=== PATIENT | male | born 1950 | race Caucasian/White ===

== ENCOUNTER 2020-12-17 09:36 | Inpatient (IN) | payer OTHER ==
[~2020-12-17] VITALS: Ht 175.3 cm; Wt 82.2 kg
[2020-12-17 10:20] LABS: BASOPHIL 0.3 % (0-2); EOSINOPHIL 0 % (0-7); HCT 17.3 % (42.0-52.0); LYMPHOCYTE 14.9 % (15-48); MCH 31.4 pg (25.0-31.0); MCHC 33.5 g/dL (32.0-36.0); MCV 93.5 fL (78.0-100.0); MONOCYTE 9.6 % (0-12); MPV 9.5 fL (6.0-9.5); NEUTROPHIL 74.6 % (41-80); NRBC 0.1; PLT 478 K/uL (150-400); RBC 1.85 M/uL (4.70-6.00); WBC 13.5 K/uL (4.0-10.5)
[2020-12-17 10:25] LABS: INR 1.38 (0.9-1.2); PROTHROMBIN TIME 16.3 SECONDS (11.8-13.4); PTT 33.2 SECONDS (24.4-34.7)
[2020-12-17 10:27] LABS: HGB 5.8 g/dl (13.2-18.0)
[2020-12-17 10:35] LABS: ALBUMIN 2.4 g/dL (3.4-5.0); BILIRUBIN - TOTAL 0.3 mg/dL (0.2-1.0); BUN/CREAT RATIO (CALC) 18.5 RATIO; CREATININE 0.81 mg/dL (0.67-1.17); GLOBULIN (CALCULATION) 2.2 g/dL; POTASSIUM 3.5 mmol/L (3.5-5.1); TOTAL PROTEIN 4.6 g/dL (6.4-8.2)
[2020-12-17 12:27] LABS: BILIRUBIN NEGATIVE (NEGATIVE); BLOOD NEGATIVE Ery/uL (NEGATIVE); CLARITY CLEAR (CLEAR); COLOR YELLOW (YELLOW); GLUCOSE (U) NORMAL (NORMAL); LEUKOCYTES NEGATIVE Leu/uL (NEGATIVE); NITRITE NEGATIVE (NEGATIVE); PROTEIN NEGATIVE (NEGATIVE)
[2020-12-17] MEDS ORDERED: PRAVACHOL20 MG PO (15:23)
[2020-12-17] MEDS ORDERED: ACCUPRIL40 MG PO (15:23)
[2020-12-17] MEDS ORDERED: ATENOLOL-CHLOR1 EAC1 PO (15:24)
[2020-12-17 21:11] LABS: HCT 22.6 % (42.0-52.0); HGB 7.7 g/dL (13.2-18.0)
[2020-12-18 06:54] LABS: BASOPHIL 0.7 % (0-2); EOSINOPHIL 1.1 % (0-7); HCT 20.7 % (42.0-52.0); HGB 7.1 g/dl (13.2-18.0); LYMPHOCYTE 30.1 % (15-48); MCHC 34.3 g/dL (32.0-36.0); MCV 90.4 fL (78.0-100.0); MONOCYTE 12.1 % (0-12); MPV 9.3 fL (6.0-9.5); NEUTROPHIL 55.6 % (41-80); NRBC 0; PLT 384 K/uL (150-400); RBC 2.29 M/uL (4.70-6.00); RDW 14.8 % (11.5-14.0)
[2020-12-18 07:10] LABS: ALBUMIN 2.2 g/dL (3.4-5.0); BILIRUBIN - TOTAL 0.5 mg/dL (0.2-1.0); BUN/CREAT RATIO (CALC) 21.3 RATIO; CREATININE 0.75 mg/dL (0.67-1.17); GLOBULIN (CALCULATION) 2.2 g/dL; POTASSIUM 3.4 mmol/L (3.5-5.1); TOTAL PROTEIN 4.4 g/dL (6.4-8.2)
[2020-12-18 09:02] LABS: IRON % SATURATION 16.1 %SAT (20-50)
[2020-12-18 17:30] LABS: HCT 25.6 % (42.0-52.0); HGB 8.7 g/dL (13.2-18.0)
[2020-12-19 00:21] LABS: HCT 24.1 % (42.0-52.0); HGB 7.9 g/dL (13.2-18.0)
--- NOTE | 2020-12-19 03:14 | NUR ---
12/18/20 0000 PT AMBULATED TO RESTROOM, PT BASELINE SBA, PT C/O DIZZINESS UPON SITTING ON BATHROOM SEAT, RN CHECKED VS BP WAS 110/70, HR 130, O2 97% RA, RN COACHED PT ON BREATHING AND PROPER BODY POSITION, RN UPDATED PERSONAL CONSULTANT OF PT COMPLAINTS, PT STATED HE WAS FEELING BETTER WHILE USING RESTROOM, PT ATTEMPTED AMBULATING FROM BATHROOM TO BEDROOM WITH TWO ASSIST, AND PT LEGS LOCKED AND HE SLID TO FLOOR CONTROLLED BY THE TWO ASSIST, RN ENTERED ROOM AND ASSISTED PT TO FLOOR WELL, RN NOTED PT GAZE TO BE NOT TRACKING AND LOOKING OUT INTO THE DISTANCE AND A NEW TREMOR TO RIGHT HAND, RAPID RESPONSE WAS CALLED, AND STAFF ENTERED ROOM (PERSONAL CONSULTANT, RESPIRATORY, TWO MORE NURSES) BLOOD PRESSURE WAS TAKEN AFTER PATIENT WAS SAFELY ON FLOOR WITH NO MORE TREMOR (APPROXIMATELY 30SECS-1MIN AFTER PT WAS TAKEN TO FLOOR) PT BLOOD PRESSURE WAS 73/45 HR 137 O2 97 RA RR 16, PT FEET WERE ELEVATED AND HEAD WAS SITUATED ON PILLOW, APPROIXMATELY TWO MINS LATER VS 107/54, HR 146, O2 97% RR 17, TWO MINS LATER BP 134/63, HR 100 O2 97% RA 18 RR, PT WAS AXO4 AFTER FALL, NO NEW INJURIES NOTED, PERSONAL CONSULTANT ORDERED SEIZURE PRECAUTIONS, HNH, AND EKG. PT PLACED IN SEIZURE PRECAUTIONS, HNH RESULTED PRIOR 12/18/20 1730 8.7 12/19/20 0030 7.9 PERSONAL CONSULTANT ORDERED TWO UNITS TO TRANSFUSE AND ONE 20MG IVP LASIX BETWEEN THE UNIS OF BLOOD, CONSENT WAS SIGNED AND BLOOD WAS VERIFIED AND ININTIATED AT 0155 EKG WAS NOTED TO BE ST WITH BBB AND PVC'S AND PAC'S. PT STATES FEELING BETTER AT THIS TIME, PT WILL ALSO BE BEDREST, AND USING A BEDPAN AND URINAL FOR THIS SHIFT. IRIS AND POST FALL HUDDLE COMPLETED BY STAFF AND HOUSE MANAGEMENT.
[2020-12-19 06:16] LABS: BASOPHIL 0.7 % (0-2); EOSINOPHIL 0.1 % (0-7); HCT 26.5 % (42.0-52.0); LYMPHOCYTE 21.3 % (15-48); MCH 30.4 pg (25.0-31.0); MCV 89.5 fL (78.0-100.0); MONOCYTE 8.3 % (0-12); MPV 9.3 fL (6.0-9.5); NEUTROPHIL 68.8 % (41-80); NRBC 0; PLT 328 K/uL (150-400); RBC 2.96 M/uL (4.70-6.00); RDW 14.8 % (11.5-14.0); WBC 14.9 K/uL (4.0-10.5)
[2020-12-19 06:29] LABS: BUN/CREAT RATIO (CALC) 28.6 RATIO; CREATININE 0.7 mg/dL (0.67-1.17); MAGNESIUM 1.7 mg/dL (1.8-2.4); POTASSIUM 3.1 mmol/L (3.5-5.1)
--- NOTE | 2020-12-19 14:27 | NUR ---
12/19/20 Mr. Au lives at home with his spouse. He one son who lives in [place]. His spouse has a stepson. Mr. Au was independent in the home and community prior to admission.
[2020-12-19 18:26] LABS: HCT 27.8 % (42.0-52.0); HGB 9.5 g/dL (13.2-18.0)
[2020-12-20 05:48] LABS: BASOPHIL 0.5 % (0-2); EOSINOPHIL 1.1 % (0-7); HCT 24.5 % (42.0-52.0); HGB 8.3 g/dl (13.2-18.0); LYMPHOCYTE 18.7 % (15-48); MCH 30.9 pg (25.0-31.0); MCHC 33.9 g/dL (32.0-36.0); MCV 91.1 fL (78.0-100.0); MONOCYTE 9.9 % (0-12); MPV 9.3 fL (6.0-9.5); NRBC 0; PLT 293 K/uL (150-400); RBC 2.69 M/uL (4.70-6.00); RDW 15.8 % (11.5-14.0); WBC 19.4 K/uL (4.0-10.5)
[2020-12-20 06:40] LABS: BUN/CREAT RATIO (CALC) 22.7 RATIO; CREATININE 0.66 mg/dL (0.67-1.17)
[2020-12-21 05:30] LABS: BASOPHIL 0.7 % (0-2); EOSINOPHIL 3.9 % (0-7); HCT 27.8 % (42.0-52.0); HGB 9.3 g/dl (13.2-18.0); MCH 30.3 pg (25.0-31.0); MCHC 33.5 g/dL (32.0-36.0); MCV 90.6 fL (78.0-100.0); MONOCYTE 12.7 % (0-12); NEUTROPHIL 62.3 % (41-80); NRBC 0.2; PLT 300 K/uL (150-400); RBC 3.07 M/uL (4.70-6.00); RDW 16.1 % (11.5-14.0); WBC 13.2 K/uL (4.0-10.5)
[2020-12-21 05:50] LABS: BUN/CREAT RATIO (CALC) 20.4 RATIO; CREATININE 0.54 mg/dL (0.67-1.17); MAGNESIUM 1.6 mg/dL (1.8-2.4); POTASSIUM 3.2 mmol/L (3.5-5.1)
[2020-12-21 19:10] LABS: BASOPHIL 0.3 % (0-2); EOSINOPHIL 1.8 % (0-7); HCT 28.8 % (42.0-52.0); HGB 9.7 g/dl (13.2-18.0); MCH 30.4 pg (25.0-31.0); MCHC 33.7 g/dL (32.0-36.0); MCV 90.3 fL (78.0-100.0); MONOCYTE 11.7 % (0-12); MPV 8.7 fL (6.0-9.5); NEUTROPHIL 67.6 % (41-80); NRBC 0; PLT 327 K/uL (150-400); RBC 3.19 M/uL (4.70-6.00); RDW 15.9 % (11.5-14.0); WBC 16.2 K/uL (4.0-10.5)
[2020-12-21 19:28] LABS: BUN/CREAT RATIO (CALC) 16.4 RATIO; CREATININE 0.55 mg/dL (0.67-1.17); MAGNESIUM 1.5 mg/dL (1.8-2.4); POTASSIUM 3.4 mmol/L (3.5-5.1)
[2020-12-23 04:13] LABS: BASOPHIL 0.4 % (0-2); EOSINOPHIL 2.4 % (0-7); HCT 30.9 % (42.0-52.0); HGB 10.2 g/dl (13.2-18.0); LYMPHOCYTE 21.3 % (15-48); MCV 90.9 fL (78.0-100.0); MONOCYTE 17.5 % (0-12); NRBC 0; PLT 375 K/uL (150-400); RDW 15.4 % (11.5-14.0); WBC 14.3 K/uL (4.0-10.5)
[2020-12-23 04:32] LABS: BUN/CREAT RATIO (CALC) 13.5 RATIO; CREATININE 0.52 mg/dL (0.67-1.17); POTASSIUM 3.4 mmol/L (3.5-5.1)
[2020-12-23] MEDS ORDERED: PROTONIX 40MG T40 MG PO (09:26)
[2020-12-23] MEDS ORDERED: AMOXICILLIN500 MG PO (09:26)
[2020-12-23] MEDS ORDERED: BIAXIN500 MG PO (09:26)
[2020-12-23] MEDS ORDERED: CARAFATE1 GM PO (09:26)
[2020-12-23] MEDS ORDERED: NORCO 5-325 TA1 EACH PO (09:26)
[2020-12-23] MEDS ORDERED: ASPIRIN EC81 MG PO (09:31)
[2020-12-23] MEDS ORDERED: NAPROXEN SODIU220 M1 PO (09:31)
[2020-12-23] MEDS ORDERED: POTASSIUM CHLO20 ME1 PO (09:36)
== END 2020-12-23 11:50 | disposition home or self-care (01) | DRG 377 ==
LOC: FER 09:36 → FTCU 13:16
PROVIDERS: Emergency Medicine; Family Medicine; Internal Medicine; Nurse Practitioner; Student in an Organized Health Care Education/Training Program; ADMIT Internal Medicine
PROC: 0DB68ZX Excision of Stomach, Via Natural or Artificial Opening Endoscopic, Diagnostic (ICD-10-PCS; 2020-12-19)
PROC: 0W3P8ZZ Control Bleeding in Gastrointestinal Tract, Via Natural or Artificial Opening Endoscopic (ICD-10-PCS; principal; 2020-12-19 09:30)
PROC: 0DB98ZX Excision of Duodenum, Via Natural or Artificial Opening Endoscopic, Diagnostic (ICD-10-PCS; 2020-12-19 09:30)
DX: K26.4 Chronic or unspecified duodenal ulcer with hemorrhage (principal); I21.A1 Myocardial infarction type 2; D62 Acute posthemorrhagic anemia; E87.6 Hypokalemia; E83.42 Hypomagnesemia; M19.90 Unspecified osteoarthritis, unspecified site; Z20.822 Contact with and (suspected) exposure to COVID-19; I25.10 Atherosclerotic heart disease of native coronary artery without angina pectoris; K44.9 Diaphragmatic hernia without obstruction or gangrene; T39.315A Adverse effect of propionic acid derivatives, initial encounter; Z95.1 Presence of aortocoronary bypass graft; Z90.81 Acquired absence of spleen; Z98.890 Other specified postprocedural states; Z79.899 Other long term (current) drug therapy; Z85.828 Personal history of other malignant neoplasm of skin
CPT/HCPCS: 36415; 36430; 70450; 71045; 74240; 80048; 80053; 81003; 82270; 82728; 83540; 83550; 83735; 83880; 84132; 84484; 85014; 85018; 85025; 85610; 85730; 86677; 86850; 86900; 86901; 86922; 93005; C9113; J0171; J1940; J2250; J2405; J2704; J2916; J3475; J7030; J7040; J7050; J7120; P9016; U0002

== ENCOUNTER → 2021-05-27 | Day surgery (SDC) | payer OTHER ==
[~2021-05-27] VITALS: Ht 175.3 cm; Wt 79.5 kg
[~2021-05-27] MED LIST: ACCUPRIL40 MG PO; AMOXICILLIN500 MG PO; ASPIRIN EC81 MG PO; ATENOLOL-CHLOR1 EAC1 PO; BIAXIN500 MG PO; CARAFATE1 GM PO; NAPROXEN SODIU220 M1 PO; NORCO 5-325 TA1 EACH PO; POTASSIUM CHLO20 ME1 PO; PRAVACHOL20 MG PO; PROTONIX 40MG T40 MG PO; VITAMIN D250 MCG PO; VITAMIN E180 M1 PO
== END | disposition home or self-care (01) ==
LOC: FAS 03-01 11:15
DX: K29.50 Unspecified chronic gastritis without bleeding (principal); K44.9 Diaphragmatic hernia without obstruction or gangrene; I25.10 Atherosclerotic heart disease of native coronary artery without angina pectoris; I10 Essential (primary) hypertension; E78.5 Hyperlipidemia, unspecified; Z87.19 Personal history of other diseases of the digestive system; Z95.1 Presence of aortocoronary bypass graft; Z72.0 Tobacco use
CPT/HCPCS: J2704; J7120

== ENCOUNTER 2021-10-21 15:21 | Emergency (ER) | payer OTHER | END 2021-10-21 17:38 | disposition other institution (70) | LOC: FER 15:21 | DX: S68.621A Partial traumatic transphalangeal amputation of left index finger, initial encounter (principal); I10 Essential (primary) hypertension; W28.XXXA Contact with powered lawn mower, initial encounter; Y92.009 Unspecified place in unspecified non-institutional (private) residence as the place of occurrence of the external cause | CPT/HCPCS: 73140 ==